=== PATIENT | male | born 1955 ===

== ENCOUNTER → 2024-02-09 06:28 | Day surgery (SDC) | payer OTHER, SELFPAY | LOC: GI 06:28 | PROVIDERS: ATTENDING PHYSICIAN Internal Medicine Gastroenterology; FAMILY PHYSICIAN Family Medicine | DX: Z12.11 Encounter for screening for malignant neoplasm of colon (principal); D12.3 Benign neoplasm of transverse colon; K64.8 Other hemorrhoids; K31.89 Other diseases of stomach and duodenum; K22.89 Other specified disease of esophagus; R12 Heartburn; Z86.0100 Personal history of colon polyps, unspecified | CPT/HCPCS: 45380; 43239; 88305; 88342 ==

== ENCOUNTER 2025-03-13 12:52 | Emergency (ER) | payer OTHER, SELFPAY ==
[2025-03-13 13:03] VITALS: BP 155/99
[2025-03-13 13:26] LABS: Hematocrit 44.4 % (39.0-52.0); Hemoglobin 15.8 g/dL (13.0-18.0); Mean Corp Hgb Conc. 35.6 g/dL (33.0-37.0); Mean Corpuscular Volume 82.7 fL (80.0-94.0); Nucleated Red Blood Cells % 0 % (-); Platelet Count 243 10^3/uL (130-400); Red Cell Dist. Width 11.9 % (11.5-14.5)
[2025-03-13 13:38] LABS: ALT (SGPT) 72 U/L (0-50); AST (SGOT) 36 U/L (17-59); Albumin 4.6 g/dl (3.5-5.0); Alkaline Phosphatase 91 U/L (38-126); Blood Urea Nitrogen 20 mg/dl (9-20); Calcium 9.3 mg/dl (8.4-10.2); Carbon Dioxide 26 mmol/L (22-30); Chloride 102 mmol/L (98-107); Glucose 135 mg/dl (70-99); Lipase 125 U/L (23-300); Potassium 4.1 mmol/L (3.5-5.1); Sodium 135 mmol/L (135-145); Total Protein 7.6 g/dl (6.3-8.2); eGFR > 60.00
[2025-03-13 14:08] VITALS: BMI 26.6
[2025-03-13] MEDS: TORADOL 15 MG IV (15:00)
[2025-03-13] MEDS: PROTONIX IV 40 MG IV (15:00)
[2025-03-13] MEDS: ZOFRAN 4 MG IV (15:00)
[2025-03-13] MEDS: NSS 1000 IV (15:00)
--- NOTE | 2025-03-13 15:39 | ED.GENMED ---
History of Present Illness
General
Chief Complaint: Abdominal Pain
Source: patient
Exam Limitations: none
Time Seen by Provider: 03/13/25 14:21
Nursing documentation reviewed up to this point in time: agreed with
History of Present Illness
History of Present Illness:
Patient presents to ED secondary to worsening abdominal pain over the past 1 week. Patient states that 1 week ago, he started to experience abdominal pain along with upper respiratory symptoms, consisting of congestion and cough. Patient was
evaluated by his primary care physician and was prescribed Augmentin along with prednisone. His upper respiratory symptoms have slightly improved, but his abdominal pain has worsened, with decreased appetite. Denies fever or chills. Denies nausea
or vomiting. In fact, patient has had difficulty with bowel movements over the past couple days, which is unusual for the patient. Denies sick contact. Denies recent travel. Denies recent change in diet. Patient also reports having received
colonoscopy 1 year ago which revealed 1 benign polyp.
Review of Systems
Review of Systems
Allergies reviewed?: Yes
All Other Systems: ROS reviewed and negative except as documented in HPI and ROS
Constitutional: Reports no symptoms; Denies fever
Respiratory: Reports cough
Cardiac: Reports no symptoms
ABD/GI: Reports abdominal pain and constipated; Denies vomiting or diarrhea
: Reports no symptoms
Musculoskeletal: Reports no symptoms
Skin: Reports no symptoms
Neurological: Reports no symptoms
Phy Exam
Physical Exam
Physical Exam:
Physical Exam
General: mild painful distress, not acutely ill. afebrile
Head: nc/at. eomi
Neck: supple. no meningeal signs.
Heart: s1/s2 regular rate and rhythm
Lungs: no acute respiratory distress. clear bilaterally
Abdomen: normal bowel sounds. no distention. mild LLQ tenderness to palpation
Neuro: alert and oriented x 3. no focal neurological deficits
Skin: no rash
Psychiatric: well kept. interactive and cooperative
Extremities: no edema. no calf tenderness.
Course
Orders/Labs/Results
Orders:
Orders
03/13/25 13:12
Complete Blood Count/With Diff Urgent
Comprehensive Metabolic Panel Urgent
Lipase Urgent
03/13/25 14:35
Pantoprazole [Protonix IV] 40 mg IV NOW STA
03/13/25 14:36
CT Abd/pelvis W Iv Cont Urgent
Comment:
Reason For Exam: LLQ pain
Ketorolac [Toradol] 15 mg IV NOW STA
03/13/25 14:37
0.9% Sodium Chloride 1000 ml [Nss] 1,000 ml IV BOLUS
Ondansetron Injectable [Zofran] 4 mg IV NOW STA
03/13/25 15:38
HYDROmorphone [Dilaudid] 0.5 mg IV NOW STA
03/13/25 15:39
HYDROmorphone [Dilaudid] 0.5 mg .ROUTE .STK-MED ONE
Abnormal Lab Results
03/13/25
13:12
WBC 12.6 H 10^3/uL
(4.8-10.8)
MPV 10.8 H fL
(7.4-10.4)
Absolute Neuts (auto) 9.9 H 10^3/uL
(1.4-6.5)
Neutrophils % 78.7 H %
(42.2-75.2)
Lymphocytes % 15.7 L %
(20.5-51.1)
Glucose 135 H mg/dl
(70-99)
ALT 72 H U/L
(0-50)
03/13/25 13:12
03/13/25 13:12
Vital Signs
Initial and Last Documented VS:
Initial Vital Signs
Temp Pulse Resp BP Pulse Ox
98.3 F 104 18 155/99 97
03/13/25 13:03 03/13/25 13:03 03/13/25 13:03 03/13/25 13:03 03/13/25 13:03
Last Documented Vital Signs
Temp Pulse Resp BP Pulse Ox
98.3 F 104 18 155/99 97
03/13/25 13:03 03/13/25 13:03 03/13/25 16:00 03/13/25 13:03 03/13/25 15:40
MDM/Problems Addressed
MDM/Problems Addressed:
CT abdomen pelvis report reviewed and discussed with patient and spouse. In addition, spoke with on-call GI physician, Dr. Hogue, who recommends patient to be started on PPI along with Carafate, as well as diet modification. Recommend GI
follow-up, if symptoms persist beyond next couple weeks. Patient otherwise is afebrile, hemodynamically stable, and appears comfortable, at time of discharge. Patient expressed understanding at time of discharge, to the care of his spouse. Return
precautions provided, i.e. fever/worsening pain/vomiting.
*Pulse Oximetry
SaO2: 97
Oxygen Mode of Delivery: Room air
Patient hypoxic: no
*Critical Care Note
Total Time (30-74mins, 75-104mins- exclusive of procedures): Not Applicable
ED Attending Note
-
Portions of this chart may have been created with voice recognition software.� Occasional wrong word or��sound alike� substitutions may have occurred due to the inherent limitations of voice recognition software.
Discharge Plan
Departure
Patient Disposition: Home (Routine Discharge)
Date of Disposition: 03/13/25
Time of Disposition: 17:36
Patient with high blood pressure during this ER visit?: Yes
Condition: Good
Discharge Problem:
Duodenitis
Instructions: [place] diet
Prescriptions:
New
sucralfate 100 mg/mL suspension
10 ml PO ACHS Qty: 400 0RF
No Action
acetaminophen [acetaminophen] 325 mg tablet
650 mg PO Q4HPRN PRN (Reason: mild pain) Qty: 1 0RF
ibuprofen 200 mg tablet
400 - 600 mg PO Q6HPRN PRN (Reason: moderate pain) Qty: 1 0RF
oxycodone 5 mg tablet
5 mg PO Q4HPRN PRN (Reason: breakthrough/severe pain) Qty: 7 0RF
Referrals:
Hunter Alvarez MD [Active, Gastroenterology]
Lico Alonzo DO [Family Provider, Family Practice]
Activity Restrictions/Additional Instructions:
As discussed, please follow up with your primary care physician and/or referred GI physician with any further concerns. Please consider return to ED with worsening symptoms, i.e. fever/worsening pain/vomiting. Your prescription has been sent
electronically to [facility] pharmacy in [place]. In addition, recommend starting acid reducing medications, i.e. Prilosec/Pepcid/Nexium/Protonix, daily, along with diet modification, i.e. bland diet.
Interventions
Interventions:
*Risk Screen - Suicide Last Done: 03/13/25 13:03
*General Assessment Last Done: 03/13/25 13:03
*Neglect/Abuse Screening Last Done: 03/13/25 13:03
*ED COVID-19 Vaccine History Last Done: 03/13/25 14:09
*ED Influenza Vaccine History Last Done: 03/13/25 14:09
[facility] Risk Assessment Tool Last Done: 03/13/25 14:08
*Nursing Disposition Last Done: 03/13/25 18:04
CB-Afshbn-Kqiehvpati Assessment Last Done: 03/13/25 14:09
Discharge Date and Time
Discharge Date/Time: 03/13/25 18:05
Print Language: WELSH
[2025-03-13] MEDS: DILAUDID 0.5 MG IV (15:41)
== END 2025-03-13 18:05 | disposition home or self-care (01) ==
LOC: EMR 12:52
PROVIDERS: Emergency Medicine; EMERGENCY PHYSICIAN Emergency Medicine; FAMILY PHYSICIAN Family Medicine
DX: K29.80 Duodenitis without bleeding (principal); Z90.49 Acquired absence of other specified parts of digestive tract
CPT/HCPCS: 99284; 96374; 96375; 74177; 80053; 83690; 85025; Q9967

== ENCOUNTER 2025-03-19 06:13 | Day surgery (SDC) | payer OTHER, SELFPAY ==
[2025-03-19] VITALS (7 sets, daily range): BP systolic 132–172; BP diastolic 81–92; BMI 26.5
[2025-03-19] MEDS: TYLENOL 650 MG PO (17:21)
--- NOTE | 2025-03-19 21:58 | OR.RPT ---
Operative Report
Operative Report
Patient name: Lico Cronin
: 1955

Date of operation: 03/19/2025
Pre-operative diagnosis: Chronic serous otitis media, bilateral; eustachian tube dysfunction
Post-operative diagnosis: Same
Procedure performed: Bilateral myringotomy with tube placement
Surgeon: Jarad Walker DO
Anesthesiologist: Dr. Duarte
Anesthesia: General, LMA
Surgical indications: Lico is a 70yo man with chronic serous otitis medial, bilateral and eustachian tube dysfunction that has required several sets of pressure equalization tubes throughout his life. His most recent set was in 2023 and it had
extruded in October 2023. He had been doing well until around the Fall of 2024 when he returned to the ENT office with ear pressure, muffled hearing and discomfort. An audiogram and tympanometry confirmed serous middle ear effusions associated with a
conductive hearing loss. Physical exam showed a retracted tympanic membrane on the left nearly atelectatic. A recommendation was made for bilateral myringotomy with tube placement.
Details of procedure: The patient was met in the preoperative holding area where informed written consent was reviewed and all questions were answered. He was taken back to the operating room and transferred supine onto the operating room table. The
anesthesia team induced anesthesia and placed an LMA without difficulty. A surgical timeout was performed confirming the necessary perioperative information. The right ear was examined with a microscopy and ear speculum. Cerumen was debrided from
the ear canal. The tympanic membrane was intact and mildly retracted. Landmarks were normal. A myringotomy knife was used to make a myringotomy in the anteroinferior quadrant in a radial fashion. The middle ear was dry. A Solitario's modified T-tube
was placed through the myringotomy without issue. Ciprofloxacin drops were applied followed by a cotton ball. The microscope and speculum was then moved to the left side. Cerumen was debrided from the left ear canal. The left tympanic membrane was
intact with a moderate retraction pocket anteriorly nearly contacting the promontory. Landmarks were otherwise normal. A myringotomy was made inferior to the umbo and just posterior to the retraction pocket. A serous effusion was suctioned using a 5
Fr straight suction. A Solitario's modified T-Tube was placed without difficulty. Ciprofloxacin drops were applied followed by a cotton ball. This concluded the procedure and the patient tolerated it well. The anesthesia team then emerged the patient
safely from anesthesia and the LMA was removed. He was taken to the PACU in stable condition.
Specimens: None
Complications: None immediately present
Estimated blood loss: 1cc
Disposition: Stable to PACU followed by d/c to home
== END 2025-03-19 17:39 | disposition home or self-care (01) ==
LOC: SDS 06:13
PROVIDERS: ATTENDING PHYSICIAN Student in an Organized Health Care Education/Training Program
DX: H69.93 Unspecified Eustachian tube disorder, bilateral (principal); H65.23 Chronic serous otitis media, bilateral; H90.12 Conductive hearing loss, unilateral, left ear, with unrestricted hearing on the contralateral side
CPT/HCPCS: 69436